=== PATIENT | female | born 1965 | race Caucasian/White ===

== ENCOUNTER 2019-07-19 12:05 | Observation (INO) ==
[2019-07-19] MEDS ORDERED: NITROGLYCERIN 2% OINTMENT 30GM TUBE EXT STA (12:56)
[2019-07-19] MEDS ORDERED: ONDANSETRON INJ 2 MG/ML 2 ML VIAL IV STA (12:56)
[2019-07-19] MEDS ORDERED: SODIUM CHLORIDE 0.9% 500 ML IV SCH (13:00)
[2019-07-19 13:13] LABS: Hematocrit (blood only) 40.4 % (37-47); Hemoglobin 14.1 g/dL (12.0-16.0); Mean Corpuscular Hemoglobin 34.2 pg (25-34); Mean Corpuscular Hgb Conc 34.9 g/dL (32-36); Mean Corpuscular Volume 98.1 fL (80-100); RDW Coefficient of Variation 13.2 % (11.5-14.5); RDW Standard Deviation 46.9 fL (36.4-46.3); Red Blood Count 4.12 M/uL (4.2-5.4); White Blood Count 5.03 K/uL (4.8-10.8)
--- NOTE | 2019-07-19 13:21 | XRay Report ---
XR chest 1V portable CLINICAL HISTORY: Chest Pain dysphagia. Dyspnea. COMPARISON STUDY: No previous studies for comparison. FINDINGS: The bones soft tissues and hemidiaphragms are normal. The cardiomediastinal silhouette is n ormal. The lungs are clear. The pulmonary vasculature is normal. IMPRESSION: Negative chest. ACT 112: Negative or not required by law. The above report was generated using voice recognition software. It may contain grammatical, syntax or spelling errors. Electronically signed by: Quinn Byrd M.D. 07/19/2019 1:20 PM
[2019-07-19 13:22] LABS: INR 1.1 (0.9-1.1); Partial Thromboplastin Time 28.5 Seconds (21.0-31.0); Prothrombin Time 11.4 Seconds (9.0-12.0)
[2019-07-19 13:23] LABS: Albumin Level 4.2 gm/dl (3.4-5.0); Aspartate Aminotransferase 100 U/L (15-37); BUN Creatinine Ratio 12.9 (10-20); Blood Urea Nitrogen 8 mg/dl (7-18); Calcium 9.9 mg/dl (8.5-10.1); Carbon Dioxide 24 mmol/L (21-32); Chloride 103 mmol/L (98-107); Creatinine Clr Calc Pharmacy 101.5 ml/min; Est GFR (Non-African American) 103.5; Glucose 143 mg/dl (70-99); Lipase 124 U/L (73-393); Magnesium 1.5 mg/dl (1.8-2.4); Potassium 3.4 mmol/L (3.5-5.1); Sodium 135 mmol/L (136-145)
[2019-07-19 13:27] LABS: Alanine Aminotransferase 48 U/L (12-78); Albumin Globulin Ratio 0.8 (0.9-2); Alkaline Phosphatase 205 U/L (45-117); Bilirubin,Total 1.1 mg/dl (0.2-1); Globulin 5.2 gm/dl (2.5-4.0); Total Protein 9.4 gm/dl (6.4-8.2); Troponin I < 0.015 ng/ml (0-0.045)
[2019-07-19 13:31] LABS: Basophils # (auto) 0.01 K/uL (0-0.2); Basophils % (auto) 0.2 %; Eosinophils # (auto) 0.01 K/uL (0-0.5); Eosinophils % (auto) 0.2 %; Lymphocytes # (auto) 1.79 K/uL (1.2-3.4); Lymphocytes % (auto) 35.6 %; Mean Platelet Volume 10.7 fL (7.4-10.4); Monocytes # (auto) 0.53 K/uL (0.11-0.59); Monocytes % (auto) 10.5 %; Neutrophils # (auto) 2.69 K/uL (1.4-6.5); Neutrophils % (auto) 53.5 %; Platelet Count 84 K/uL (130-400); Platelet Estimate Decreased (Normal)
[2019-07-19] MEDS ORDERED: MAGNESIUM SULFATE / D5W 1 GM/100 ML BAG IV ONE (13:37)
[2019-07-19] MEDS ORDERED: MAGNESIUM OXIDE 400 MG TAB PO STA (13:37)
[2019-07-19] MEDS ORDERED: OPTIRAY 320 125ml IV PRN (13:46)
--- NOTE | 2019-07-19 14:01 | CT Scan Report ---
CT angio chest PE protocol CLINICAL HISTORY: 53 years-old Female presenting with atypical chest pain, clinical concern for pulmo nary embolus. TECHNIQUE: Multidetector CT angiography of the chest was performed after administration of intravenou s contrast. 3-D volumetric and/or maximum intensity projection (MIP) images were subsequently reconst ructed for review. IV contrast: 119 mL of Optiray 320. One or more dose lowering techniques were used consistent with the principles of ALARA (as low as reasonably achievable), including automatic expos ure control, mA or kV adjustment to individual patient size, and/or use of iterative reconstruction. COMPARISON: None. CT DOSE (mGy.cm): The estimated cumulative dose is 387.62 mGy.cm. 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 Pulmonary vasculature: The study is suboptimal for the assessment of the pulmonary vascular tree secondary to timing of the contrast bolus. No filling defect within the pulmonary arteries to suggest embolus. Main pulmonary ar louie is not enlarged. No flattening of the interventricular septum. No intracardiac filling defect. N o reflux of contrast into the hepatic veins. Remaining chest: Soft tissues: Asymmetric skin thickening and infiltration of the left breast may suggest prior radiat ion. No axillary, supraclavicular, mediastinal, or hilar lymphadenopathy. Trace atherosclerosis of th e aorta. Normal heart size. Coronary artery calcification. No pericardial or pleural effusion. Hepati c steatosis. Lungs and airways: No pneumothorax. Central airways patent. Pulmonary arteries are not significantly enlarged relative to adjacent bronchi. No interlobular septal thickening. No focal infiltrate or nodu le. Musculoskeletal: Normal osseous structures. IMPRESSION: 1. No evidence of pulmonary embolus. No acute intrathoracic pathology. ACT 112: Negative or not required by law. Electronically signed by: Freedom Lewis M.D. 07/19/2019 1:59 PM
--- NOTE | 2019-07-19 14:26 | History & Physical Report ---
Date of Service July 19, 2019 Assessment & Plan (1) Chest pain: - Admit to [facility] for observation for r/o - Trend cardiac biomarkers, initial set was negative, next at 1999 - EKG reviewed as above - Check 2 D echo - CTPE negative, checked for possible PE with recent surgical procedure. - If negative enzymes can consider a stress test tomorrow morning. 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 Discussion may be warranted (2) Obesity (BMI 30.0-34.9): - Diet and exercise to be encouraged upon discharge. - diet (3) Hyperlipidemia: - Follow am lipid panel (4) Hypertension: - Continue amlodipine 5 mg daily - BP stable currently, 131/80, nitropaste on - Likely elevated in the setting of anxiety over past few days, continue to monitor. (5) Abdominal distension: - Pt reporting worsening abd distension since having surgery Jun 29, denies use of narcotic medications or slowed bowels (on PDMP review had filled oxycodone-acetaminophen 5-325 mg Rx for 18 tabs on 06/28/19 for surgical procedure), has regular BMs, tolerating oral intake ok but reports poor appetite, no nausea/vomiting. - Check KUB now to r/o ?partial obstruction? retained fecal load? Hx of c- section ? possible adhesions (6) Hypomagnesemia: - Mag 1.5 upon arrival, replaced via IV supplementation in the ER, follow with am labs (7) Elevated alkaline phosphatase level: - 205 on admission, follow with am labs to ensure improvement - Pt uses alcohol 2-3x weekly, 1-2 drinks at a time. Discuss alcohol use and limiting consumption prior to discharge. (8) DVT prophylaxis: - teds, ambulatory CODE: FULL Dispo: From home, likely to discharge within 24 hrs. History of Present Illness Primary Care Provider: Bella Hood This is a 53 yo F with PMhx of HTN, HLD, obesity with BMI of 30.4 who presents with acute onset of chest tightness, palpitations, and near syncopal episode which occurred this morning. Of note the patient had bilateral breast implant removal by Dr. Davalos on June 29, 2019. She reports her blood pressure has been elevated on and off over the last few days. She denies chest pain, and reports there is only a slight soreness s/p surgical procedure. Her biggest complaint was heart racing which went on nearly all morning. She reports her sx worsened late this morning and noticed she was a bit lightheaded on two occasions while she was up walking about. She did not eat breakfast this morning, and states she only drank a gingerale so far today. She reports a poor appetite since surgery, and feels distended, although is having regular BM and denies any abd pain. She denies use of narcotic medications recently. [facility]. During EMS transport patient was given aspirin and nitroglycerin tablet which improved her pain, once here the ER felt recurrence of chest pressure and Nitropaste was placed which aided improvement in her symptoms. She is now complaining of a slight headache, and is requesting something to eat. Today was the first day back to work since having her breast implant removal. 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, and thought they would be gawking at me", while appearing very anxious, "and there are also a lot of hateful people there." Allergies Allergy/AdvReac Type Severity Reaction Status Date / Time No Known Allergies Allergy Verified 07/19/19 12:50 Home Medications Home Medications Medication Instructions Recorded Confirmed Type acetaminophen [Tylenol Extra 1,000 mg PO Q6H PRN 12/02/18 07/19/19 History Strength] amlodipine 5 mg PO QAM 12/02/18 07/19/19 History cholecalciferol (vitamin D3) 1,000 unit PO QAM 12/02/18 07/19/19 History [Vitamin D3] Past Med/Surg History Medical History Hyperlipidemia HX Hypertension Kidney stones PASSED ON OWN Tinnitus of both ears Surgical History History of bilateral breast implants History of carpal tunnel release BILAT History of carpal tunnel release of both wrists History of section History of dilatation and curettage History of tonsillectomy History of wisdom tooth extraction Social History Preferred Language: Malian Communication Ability: Effective Erp Implementation Consultant Required: No Beliefs That Will Affect Care: None Current Living Situation: Family Current Living Situation Comment: Lives with father Other Information That Helps Us Care for You: No Feels Safe at Home: Yes Safety Concerns: Feels Safe At This Time Smoking Status: Never smoker Second Hand Exposure: No ; Hx Alcohol Use: Yes Alcohol type: beer, wine and hard liquor Hx Substance Use: No Review of Systems Review of Systems: Constitutional: No fever, sweats or chills, + lightheadedness x 2 as per HPI. Eyes: No diplopia, no worsening or blurred vision ENT: normal hearing, no trouble swallowing Respiratory: No cough, sputum, dyspnea at rest or on exertion Cardiovascular: No chest pain, tightness, + palpitations Abdomen: No pain, nausea, vomiting, diarrhea or constipation Musculoskeletal: No joint pain, calf pain, swelling Neurologic: No weakness, numbness/tingling, or balance problems Psychiatric: No anxiety or depression Skin: No rash or itch Physical Exam Physical Exam: General: awake, alert, no apparent distress, + anxious, + obese Head: Normocephalic, atraumatic ENT: PERRL, EOMI, no pharyngeal exudate, mucous membranes moist Chest: Clear to auscultation, on room air, no adventitious breath sounds, + incisions under breast folds bilaterally appear very well healed, no surrounding erythema, no drainage Cardiac: Regular rate and rhythm, no murmur, no JVD, normal peripheral pulses, good capillary refill Abdominal: NABS x 4 quadrants, abdominal obesity, soft, + slightly distended, nontender to palpation, no rebound, guarding or tenderness Extremities: Normal inspection, no peripheral edema or erythema, calfs nontender to palpation Psych: Normal mood and affect Neuro: AAO x 3, strength intact bilaterally and rated 5/5, no motor deficits, speech is clear, no peripheral sensory deficits Results & Data Vital Signs (Past 12 Hours) Vital Signs Temp Pulse Resp BP Pulse Ox 07/19/19 13:14 98 07/19/19 13:00 69 19 148/85 H 97 07/19/19 12:30 66 20 146/80 H 98 07/19/19 12:20 36.4 C L 69 18 134/81 97 07/19/19 12:13 69 20 99 07/19/19 12:11 68 17 134/81 98 Diagnostic Findings XR chest 1V portable CLINICAL HISTORY: Chest Pain dysphagia. Dyspnea. COMPARISON STUDY: No previous studies for comparison. FINDINGS: The bones soft tissues and hemidiaphragms are normal. The cardiomediastinal silhouette is normal. The lungs are clear. The pulmonary vasculature is normal. IMPRESSION: Negative chest. ACT 112: Negative or not required by law. The above report was generated using voice recognition software. It may contain grammatical, syntax or spelling errors. Electronically signed by: Quinn Byrd M.D. 07/19/2019 1:[address] angio chest PE protocol CLINICAL HISTORY: 53 years-old Female presenting with atypical chest pain, clin ical concern for pulmonary embolus. TECHNIQUE: Multidetector CT angiography of the chest was performed after administration of intravenous contrast. 3-D volumetric and/or maximum intensity projection (MIP) images were subsequently reconstructed for review. IV contrast: 119 mL of Optiray 320. One or more dose lowering techniques were used consistent with the principles of ALARA (as low as reasonably achievable), including automatic exposure control, mA or kV adjustment to individual patient size, and/or use of iterative reconstruction. COMPARISON: None. CT DOSE (mGy.cm): The estimated cumulative dose is 387.62 mGy.cm. 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 Pulmonary vasculature: The study is suboptimal for the assessment of the pulmonary vascular tree secondary to timing of the contrast bolus. No filling defect within the pulmonary arteries to suggest embolus. Main pulmonary artery is not enlarged. No flattening of the interventricular septum. No intracardiac filling defect. No reflux of contrast into the hepatic veins. Remaining chest: Soft tissues: Asymmetric skin thickening and infiltration of the left breast may suggest prior radiation. No axillary, supraclavicular, mediastinal, or hilar lymphadenopathy. Trace atherosclerosis of the aorta. Normal heart size. Coronary artery calcification. No pericardial or pleural effusion. Hepatic steatosis. Lungs and airways: No pneumothorax. Central airways patent. Pulmonary arteries are not significantly enlarged relative to adjacent bronchi. No interlobular septal thickening. No focal infiltrate or nodule. Musculoskeletal: Normal osseous structures. IMPRESSION: 1. No evidence of pulmonary embolus. No acute intrathoracic pathology. ACT 112: Negative or not required by law. ECG Additional Comments: 19-JUL-2019 12:14:08 [facility]-EDSTAT ROUTINE RETRIEVAL Normal sinus rhythm Cannot rule out Anterior infarct , age undetermined Abnormal ECG When compared with ECG of 18-JUN-2019 12:29, No significant change was found 25mm/s 10mm/mV 150Hz 9.0.9 12SL 241 DORY: 16 Unconfirmed Vent. rate 68 BPM WA interval 132 ms QRS duration 84 ms QT/QTc 422/448 ms P-R-T axes 63 24 30 Code Status & VTE Plan Code Status Full code- discussed with the pt at bedside Supervising Physician Co-Signing Physician Notes I have seen and examined pt with Betty Beckford PA-C and I agree with assessment and plan. My Exam: General: awake, alert, no apparent distress, + anxious, + obese Head: Normocephalic, atraumatic ENT: PERRL, EOMI, no pharyngeal exudate, mucous membranes moist Chest:CTAB, + incisions under breasts C/D/I Cardiac:RRR, no G/R/M Abdominal: soft, NT, mildly distended, obese Extremities: Normal inspection, no peripheral edema or erythema, calfs nontender to palpation Psych: Normal mood and affect Neuro: AAO x 3, strength intact bilaterally and rated 5/5, no motor deficits, speech is clear, no peripheral sensory deficits PG Care Time/CCT Total # of Minutes Spent Total Time Spent with Patient: Total time spent is greater than 50% in coordination of care (as documented) at patient's floor/unit and/or counseling patient: Coding Level of Care Code 37571 OBS Care - Level 3 Diagnoses Chest pain R07.9 Obesity (BMI 30.0-34.9) E66.9 Hyperlipidemia E78.5 Hypertension I10 Abdominal distension R14.0 Hypomagnesemia E83.42 Elevated alkaline phosphatase level R74.8 DVT prophylaxis Z29.9
--- NOTE | 2019-07-19 17:04 | XRay Report ---
KUB HISTORY: Acute generalized abdominal pain with distention abd distension, r/o obstruction COMPARISON: CT abdomen 07/07/2008 FINDINGS: The bowel gas pattern is non-obstructive. Moderate fecal retention. There is no organomegal y., [place] calcifications are suggestive of probable phleboliths. No renal calculi. No ureteral calcul i. No pneumoperitoneum or pneumatosis. Mild convex right curvature of the lumbar spine with multileve l degenerative changes. No fracture. IMPRESSION: 1. Nonobstructive bowel gas pattern. 2. Moderate fecal retention. ACT 112: Negative or not required by law. The above report was generated using voice recognition software. It may contain grammatical, syntax o r spelling errors. Electronically signed by: Anthony Tapia M.D. 07/19/2019 5:03 PM
--- NOTE | 2019-07-19 17:11 | XCELERA ---
[id number] \\[email or web address]\[id number]
--- NOTE | 2019-07-19 18:39 | Emergency Department Note ---
Entered by Iker Serna acting as a scribe for History of Present Illness General Chief complaint: Chest Pain Stated complaint: chest pain Time Seen by Provider: 07/19/19 12:47 Source: patient History of Present Illness Onset (ago): hour(s) (earlier today) Location: chest Radiation: back Pain Consistency: + other (worsening) Maximum Pain Intensity: 4 Current Pain Intensity: 5 Associated symptoms: + diaphoresis, + nausea/vomiting (nausea), + weakness and + other (dyspnea, abdominal bloating) The patient is a 53 year old F who presents to the Emergency Room with complaints of worsening chest pain that started earlier today. The patient states that 4 days ago, she started to experience problems with her blood pressure. She notes that she has a history of HTN. She adds that on Friday, her blood pressure was low. She states that due to this, she did not take her amlodipine medication. She notes that the next day, she also had low blood pressure. She states yesterday, her blood pressure increased. She notes that she felt bad yesterday and was not able to fall asleep. She adds that she took her amlodipine medication yesterday. She states that today, she woke up and went to work. She notes that at work, within 30 minutes, she started to experience chest pain. She adds that she almost experienced syncope, twice, at work. She notes that she decided to leave work early and drive to the [facility]. She adds that on her drive, she was experiencing shakiness. She notes that when she arrived at the [facility], she almost passed out again. She states that her blood pressure was 189/99 at the [facility]. She states that her chest pain worsened throughout the day. She adds that her chest pain radiates to her back. She currently rates her pain as 5 out of 10. She adds that the nitro and aspirin that she received in the ambulance temporarily relieved her symptoms. She notes that she is also currently experiencing nausea, sweating, dyspnea, weakness, and abdominal bloating. She denies a history of blood clots, diabetes, and smoking. She notes that she has borderline cholesterol issues. She adds that 2 years ago, she fell off of a stairwell and landed on her chest. She notes that she got very sick after her episode of trauma. She adds that she lost 40 pounds after the event. She states that she does not know if she has a family history of cardiac issues because she is adopted. A review of the patients records show that the patient had bilateral breast implants removed on 06/[address] Davalos. The records add that the patient was sent over by the [facility] for chest pain. The records note that the patient received nitroglycerin and aspirin in the ambulance. Home Medications Home Medications Medication Instructions Recorded Confirmed Type acetaminophen [Tylenol Extra 1,000 mg PO Q6H PRN 12/02/18 07/19/19 History Strength] amlodipine 5 mg PO QAM 12/02/18 07/19/19 History cholecalciferol (vitamin D3) 1,000 unit PO QAM 12/02/18 07/19/19 History [Vitamin D3] Allergies Allergy/AdvReac Type Severity Reaction Status Date / Time No Known Allergies Allergy Verified 07/19/19 12:50 Past Med/Surg History Medical History Hyperlipidemia HX Hypertension Kidney stones PASSED ON OWN Tinnitus of both ears Surgical History History of bilateral breast implants History of carpal tunnel release BILAT History of carpal tunnel release of both wrists History of section History of dilatation and curettage History of tonsillectomy History of wisdom tooth extraction Social History Preferred Language: Chinese Communication Ability: Effective Chief Of Anesthesiology Required: No Beliefs That Will Affect Care: None Current Living Situation: Family Current Living Situation Comment: Lives with father Other Information That Helps Us Care for You: No Feels Safe at Home: Yes Safety Concerns: Feels Safe At This Time Smoking Status: Never smoker Second Hand Exposure: No ; Hx Alcohol Use: Yes Alcohol type: beer, wine and hard liquor Hx Substance Use: No Review of Systems See HPI for pertinent positives & negatives. and A total of 10 systems reviewed and were otherwise negative Physical Exam Vital Signs Vital Signs - 24 hr 07/19/19 12:11 07/19/19 12:13 07/19/19 12:20 Temperature 36.4 C L Temperature Source Oral Pulse Rate 68 69 69 Pulse Rate [Left Finger] Pulse Rate from SpO2 Sensor 67 66 Respiratory Rate 17 20 18 Respiratory Depth Normal Blood Pressure 134/81 134/81 Blood Pressure [Left Arm] Blood Pressure Mean 94 98 Blood Pressure Mean [Left Arm] Pulse Oximetry 98 99 97 Oxygen Delivery Method Room Air Sepsis Recent Fever Within 48 Hours No Sepsis New/Unexplained Change in Mental Status No Sepsis Action Taken by Nursing No Action Required 07/19/19 12:30 07/19/19 13:00 07/19/19 13:14 Temperature Temperature Source Pulse Rate 66 69 Pulse Rate [Left Finger] Pulse Rate from SpO2 Sensor 68 71 Respiratory Rate 20 19 Respiratory Depth Blood Pressure 146/80 H 148/85 H Blood Pressure [Left Arm] Blood Pressure Mean 103 114 Blood Pressure Mean [Left Arm] Pulse Oximetry 98 97 98 Oxygen Delivery Method Sepsis Recent Fever Within 48 Hours Sepsis New/Unexplained Change in Mental Status Sepsis Action Taken by Nursing 07/19/19 14:31 Temperature Temperature Source Pulse Rate Pulse Rate [Left Finger] 78 Pulse Rate from SpO2 Sensor Respiratory Rate 18 Respiratory Depth Blood Pressure Blood Pressure [Left Arm] 131/80 Blood Pressure Mean Blood Pressure Mean [Left Arm] 97 Pulse Oximetry 96 Oxygen Delivery Method Room Air Sepsis Recent Fever Within 48 Hours Sepsis New/Unexplained Change in Mental Status Sepsis Action Taken by Nursing GENERAL: Patient is in no acute distress. HEENT: No acute trauma, normocephalic atraumatic, mucous membranes moist, no nasal congestion, no scleral icterus. NECK: No stridor, no adenopathy, no meningismus, trachea is midline. LUNGS: Clear to auscultation bilaterally, no wheeze, no rhonchi, breath sounds equal. HEART: Without murmurs gallops or rubs, regular rate and rhythm. CHEST: Some tenderness to the anterior chest wall, surgical incisions healing without signs of erythema, no significant drainage. ABDOMEN: Soft, nontender, bowel sounds positive, no hernias, no peritonitis. EXTREMITIES: No cyanosis or edema, full range of motion of all the joints without pain or difficulty, no signs for acute trauma. NEUROLOGIC: Oriented x 3, no acute motor or sensory deficits, no focal weakness. SKIN: No rash, no jaundice, no diaphoresis. Course Course 1249: The patient was evaluated in room B12. A complete history and physical exam was performed. 1411: The patient states that she is feeling better after the nitro paste. I talked with the case management specialist who will see where the patient will go because the patient has [employer] insurance. 1425: I reviewed the patient's case with Betty Beckford PA-C for Dr. Chapin, [facility] Hospitalist. They will evaluate the patient for further management. Administered Medications Discontinued Medications Sodium Chloride (Nss) 500 mls @ 999 mls/hr IV .Q31M JOCELIN Stop: 07/19/19 13:30 Last Infusion: 07/19/19 13:40 Dose: 0 mls/hr Documented by: [id number] Admin: 07/19/19 13:10 Dose: 999 mls/hr Documented by: [id number] Magnesium Sulfate/Dextrose (Magnesium Sulfate / D5w) 1 gm in 100 mls @ 100 mls/hr IV ONE ONE Stop: 07/19/19 14:36 Last Infusion: 07/19/19 15:36 Dose: 0 mls/hr Documented by: [id number] Admin: 07/19/19 14:29 Dose: 100 mls/hr Documented by: [id number] Ioversol (Optiray 320 125ml) 119 ml IV ONCE PRN PRN Reason: Interaction Checking Stop: 07/23/19 13:45 Last Admin: 07/19/19 13:46 Dose: 119 ml Documented by: [id number] Magnesium Oxide (Mag-Ox) 400 mg PO NOW STA Stop: 07/19/19 13:38 Last Admin: 07/19/19 14:29 Dose: 400 mg Documented by: [id number] Nitroglycerin (Nitro-Bid 2%) 1 inch EXT NOW STA Stop: 07/19/19 12:57 Last Admin: 07/19/19 13:10 Dose: 1 inch Documented by: [id number] Ondansetron HCl (Zofran) 4 mg IV NOW STA Stop: 07/19/19 12:57 Last Admin: 07/19/19 13:10 Dose: 4 mg Documented by: [id number] Medical Decision Making Differential Diagnosis Differential diagnosis includes: OH, angina, PE, PNA, pneumothorax, cellulitis, musculoskeletal pain Medical Records Attestation: I reviewed the patient's medical records. Home Medications Current Medication List: was personally reviewed by me Laboratory Data Attestation: I reviewed the patient's lab results. Result diagrams: 07/19/19 12:00 07/19/19 12:00 Lab Results 07/19/19 07/19/19 07/19/19 Range/Units 12:00 12:00 12:00 WBC 5.03 (4.8-10.8) K/uL RBC 4.12 L (4.2-5.4) M/uL Hgb 14.1 (12.0-16.0) g/dL Hct 40.4 (37-47) % MCV 98.1 (80-100) fL MCH 34.2 H (25-34) pg MCHC 34.9 (32-36) g/dL RDW Std Deviation 46.9 H (36.4-46.3) fL RDW Coeff of Maninder 13.2 (11.5-14.5) % Plt Count 84 L (130-400) K/uL MPV 10.7 H (7.4-10.4) fL Immature Gran % (Auto) 0.0 % Neut % (Auto) 53.5 % Lymph % (Auto) 35.6 % [place] % (Auto) 10.5 % Eos % (Auto) 0.2 % Baso % (Auto) 0.2 % Immature Gran # (Auto) 0.00 (0.00-0.02) K/uL Neut # (Auto) 2.69 (1.4-6.5) K/uL Lymph # (Auto) 1.79 (1.2-3.4) K/uL [place] # (Auto) 0.53 (0.11-0.59) K/uL Eos # (Auto) 0.01 (0-0.5) K/uL Baso # (Auto) 0.01 (0-0.2) K/uL Platelet Estimate Decreased L (Normal) PT 11.4 (9.0-12.0) Seconds INR 1.1 (0.9-1.1) APTT 28.5 (21.0-31.0) Seconds PTT Ratio 1.0 Sodium 135 L (136-145) mmol/L Potassium 3.4 L (3.5-5.1) mmol/L Chloride 103 (98-107) mmol/L Carbon Dioxide 24 (21-32) mmol/L Anion Gap 9.0 (3-11) BUN 8 (7-18) mg/dl Creatinine 0.61 (0.6-1.2) mg/dl Est Cr Clr Drug Dosing 101.5 ml/min Est GFR ( Amer) 120.0 Est GFR (Non-Af Amer) 103.5 BUN/Creatinine Ratio 12.9 (10-20) Glucose 143 H (70-99) mg/dl Calcium 9.9 (8.5-10.1) mg/dl Magnesium 1.5 L (1.8-2.4) mg/dl Total Bilirubin 1.1 H (0.2-1) mg/dl AST 100 H (15-37) U/L ALT 48 (12-78) U/L Alkaline Phosphatase 205 H (45-117) U/L Troponin I < 0.015 (0-0.045) ng/ml Total Protein 9.4 H (6.4-8.2) gm/dl Albumin 4.2 (3.4-5.0) gm/dl Globulin 5.2 H (2.5-4.0) gm/dl Albumin/Globulin Ratio 0.8 L (0.9-2) Lipase 124 (73-393) U/L Imaging Data Radiologist's Impression: Radiology results as stated below per my review and the radiologist's interpretation: CT angio chest PE protocol CLINICAL HISTORY: 53 years-old Female presenting with atypical chest pain, clinical concern for pulmonary embolus. TECHNIQUE: Multidetector CT angiography of the chest was performed after administration of intravenous contrast. 3-D volumetric and/or maximum intensity projection (MIP) images were subsequently reconstructed for review. IV contrast: 119 mL of Optiray 320. One or more dose lowering techniques were used consistent with the principles of ALARA (as low as reasonably achievable), including automatic exposure control, mA or kV adjustment to individual patient size, and/or use of iterative reconstruction. COMPARISON: None. CT DOSE (mGy.cm): The estimated cumulative dose is 387.62 mGy.cm. FINDINGS: Sound Engineer topogram: Unremarkable. Pulmonary vasculature: The study is suboptimal for the assessment of the pulmonary vascular tree secondary to timing of the contrast bolus. No filling defect within the pulmonary arteries to suggest embolus. Main pulmonary artery is not enlarged. No flattening of the interventricular septum. No intracardiac filling defect. No reflux of contrast into the hepatic veins. Remaining chest: Soft tissues: Asymmetric skin thickening and infiltration of the left breast may suggest prior radiation. No axillary, supraclavicular, mediastinal, or hilar lymphadenopathy. Trace atherosclerosis of the aorta. Normal heart size. Coronary artery calcification. No pericardial or pleural effusion. Hepatic steatosis. Lungs and airways: No pneumothorax. Central airways patent. Pulmonary arteries are not significantly enlarged relative to adjacent bronchi. No interlobular septal thickening. No focal infiltrate or nodule. Musculoskeletal: Normal osseous structures. IMPRESSION: 1. No evidence of pulmonary embolus. No acute intrathoracic pathology. ACT 112: Negative or not required by law. Electronically signed by: Freedom Lewis M.D. 07/19/2019 1:59 PM XR chest 1V portable CLINICAL HISTORY: Chest Pain dysphagia. Dyspnea. COMPARISON STUDY: No previous studies for comparison. FINDINGS: The bones soft tissues and hemidiaphragms are normal. The cardiomediastinal silhouette is normal. The lungs are clear. The pulmonary vasculature is normal. IMPRESSION: Negative chest. ACT 112: Negative or not required by law. The above report was generated using voice recognition software. It may contain grammatical, syntax or spelling errors. Electronically signed by: Quinn Byrd M.D. 07/19/2019 1:20 PM ECG Data Attestation: I personally reviewed and interpreted this ECG as follows: Indication: + chest pain Rate (beats per minute): 68 Rhythm: + normal sinus ECG ST segments: no ST elevation ECG Findings: + Other (QTc 448); no PVCs Blood Pressure Blood Pressure Findings: Elevated blood pressure Blood Pressure Disposition: further management by hospitalist [facility] Narrative There is no leukocytosis or concerning anemia. The patient does have a lower platelet count although the number is not critical. There was no coagulopathy. No kidney failure. Magnesium somewhat low at 1.5. There were a few liver enzyme elevations. No evidence for pancreatitis. Chest film does not show pneumonia or CHF. Chest CT does not show PE, there was no pneumonia or evidence for aortic dissection. The patient presents with chest discomfort which caused some shortness of breath, near syncope, sweating and nausea. She does have some cardiac risk factors. The patient did feel better after the sublingual nitro given by EMS. The patient was given nitroglycerin paste, she received IV saline. She was given IV Zofran. She received IV magnesium. The patient presents with chest discomfort which sounds potentially cardiac in origin. She does have some cardiac risk factors. Patient did feel improved after the use of nitroglycerin paste. Further work-up in the hospital was felt warranted. I spoke to the patient and case management. The on-call hospitalist has been consulted. At this point, the cause for her chest discomfort is not clear. Continuous Cardiac Monitoring: An order was placed for continuous cardiac monitoring. The monitor shows a rate of 78 with normal sinus rhythm. Impression & Plan Precordial chest pain, Diaphoresis, History of breast surgery Discharge Plan Visit Data *Final* Discharge Date/Time: 07/19/19 16:30 Chief Complaint: Chest Pain Stated Complaint: chest pain ED Provider: Carlos Farah Discharge Problem: Precordial chest pain, Diaphoresis, History of breast surgery Patient Disposition: Admitted As Inpatient Discharge Instructions Interventions: ED Discharge Assessment Last Done: 07/19/19 16:30 The anabelibe's documentation has been prepared under my direction and personally reviewed by me in its entirety. I confirm that the note above accurately reflects all work, treatment, procedures, and medical decision making performed by me.
[2019-07-19] MEDS: ACETAMINOPHEN 500 MG TAB PO PRN (20:24)
[2019-07-20 03:47] LABS: Hematocrit (blood only) 39.8 % (37-47); Hemoglobin 13.5 g/dL (12.0-16.0); Mean Corpuscular Hemoglobin 33.4 pg (25-34); Mean Corpuscular Hgb Conc 33.9 g/dL (32-36); Mean Corpuscular Volume 98.5 fL (80-100); RDW Coefficient of Variation 13.2 % (11.5-14.5); RDW Standard Deviation 47.6 fL (36.4-46.3); Red Blood Count 4.04 M/uL (4.2-5.4); White Blood Count 5.24 K/uL (4.8-10.8)
[2019-07-20 03:49] LABS: Mean Platelet Volume 10.7 fL (7.4-10.4); Platelet Count 67 K/uL (130-400)
[2019-07-20 04:10] LABS: Albumin Level 3.7 gm/dl (3.4-5.0); BUN Creatinine Ratio 10.5 (10-20); Calcium 9.8 mg/dl (8.5-10.1); Creatinine Clr Calc Pharmacy 92.4 ml/min; Est GFR (African American) 116.3; Est GFR (Non-African American) 100.4; Magnesium 1.9 mg/dl (1.8-2.4); Potassium 3.7 mmol/L (3.5-5.1)
[2019-07-20 04:14] LABS: Albumin Globulin Ratio 0.8 (0.9-2); Bilirubin Direct 0.4 mg/dl (0-0.2); Bilirubin,Total 1.6 mg/dl (0.2-1); Globulin 4.6 gm/dl (2.5-4.0); Total Protein 8.3 gm/dl (6.4-8.2)
[2019-07-20 06:00] LABS: Estimated Average Glucose 103 mg/dl; Hemoglobin A1C 5.2 % (4.5-5.6)
--- NOTE | 2019-07-20 06:31 | Ultrasound Report ---
US liver CLINICAL HISTORY: elevated transaminase, abd pain COMPARISON STUDY: No previous studies for comparison. FINDINGS: The pancreas appears normal as visualized. There is no ductal dilatation. There is an echogenic nonsh adowing nonmobile 3 mm focus within the gallbladder, likely representing a polyp. The liver is of inc reased echogenicity, a nonspecific finding most often seen in hepatic steatosis. Hepatitis of infiltr ative processes can appear similar. There is a suspected 17 mm hepatic cyst which is minimally comple x containing a tiny echogenic focus. There is no right-sided hydronephrosis. IMPRESSION: 1. 3 mm gallbladder polyp. No ductal dilatation 2. Increased hepatic echogenicity. This is a nonspecific finding most often seen in hepatic steatosis . ACT 112: Negative or not required by law. Electronically signed by: Mitchell Sheikh M.D. 07/20/2019 6:29 AM
[2019-07-20] MEDS: CHOLECALCIFEROL 1,000 UNITS 25 MCG TAB PO SCH (07:31)
[2019-07-20] MEDS: AMLODIPINE BESYLATE 5 MG TAB PO SCH (07:31)
--- NOTE | 2019-07-20 11:44 | Electrocardiogram Report ---
Test Reason : Blood Pressure : / mmHG Vent. Rate : 068 BPM Atrial Rate : 068 BPM P-R Int : 132 ms QRS Dur : 084 ms QT Int : 422 ms P-R-T Axes : 063 024 030 degrees QTc Int : 448 ms Normal sinus rhythm Normal ECG When compared with ECG of 18-JUN-2019 12:29, No significant change was found Confirmed by Piter Sheth ([id number]) on 07/20/2019 11:44:22 AM Referred By: Confirmed By:Piter Sheth
[2019-07-20] MEDS: ACETAMINOPHEN 500 MG TAB PO PRN (13:18)
--- NOTE | 2019-07-20 13:49 | Hospitalist Progress Note ---
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 No significant valvular disease * CT Chest negative for PE * Stress test without abnormality per cardiology * Tbili up to 1.6 from 1.1. Direct bili elevated at 0.4 --> Liver US as below. Consider HIDA scan * Liver US with 3mm gallbladder polyp, nonspecific hepatic steatosis (2nd to etoh hx) * KUB without obstruction, moderate fecal retention * TSH 2.92 wnl * Lipase 124, given hx etoh use * Vistaril 25mg prn -- discussed this vs SSRI -- will utilize prn for now and follow up with PCP as outpatient * Exercise stress without abnormality * Possible anxiety vs GB etiology -- HIDA in AM (2) Obesity (BMI 30.0-34.9): * Diet and exercise to be encouraged upon discharge. A1c 5.2. Cholesterol elevated at 222, LDL 106, HDL 100 * HH diet (3) Hyperlipidemia: * Hx of. Not on any medications. * Lipid panel -- triglycerdies 80, cholesterol 222, LDL 106, HDL 100 * May benefit from low dose statin (4) Hypertension: * Chronic. Elevated slightly at 148/83 in setting of anxiety * Continue home amlodipine 5 mg daily (5) Abdominal distension: * - Pt reporting worsening abd distension since having surgery Jun 29, denies use of narcotic medications or slowed bowels (on PDMP review had filled oxycodone-acetaminophen 5-325 mg Rx for 18 tabs on 06/28/19 for surgical procedure), has regular BMs, tolerating oral intake ok but reported poor appetite, no nausea/vomiting. Patient states she ate well today but does have some fullness * KUB without evidence of obstruction, mod fecal load * Miralax added * Continue to monitor (6) Hypomagnesemia: * Mag 1.5 upon arrival, replaced via IV supplementation in the ER * Mag 1.9 on repeat, wnl (7) Elevated alkaline phosphatase level: * Hx heavy alcohol usage >1 year ago. States she typically consumes 2-3 mixed drinks up to twice weekly on an average basis * No s/sx withdraw currently * Alk christine elevated to 205 on admission, currently trended down to 169 * Follow with AM labs (8) Elevated bilirubin: * Tbili 1.1 on admission. * Tbili up to 1.6 with direct bili 0.4, elevated AST to ALT ration 2:1, could be consistent with EtOH hepatitis * US Liver with 3mm GB polyp, nonspecific hepatic steatosis (possibly 2nd hx etoh use) * Will order HIDA scan to further evaluate for GB pathology (9) DVT prophylaxis: * SCDs, Damon hose * Encourage ambulation Dispo: HIDA in AM, possible discharge Admission and Anticipated Discharge Date Admission Date: July 19, 2019 Supervising Physician Co-Signing Physician Notes PA Supervision Note: I did not personally see or examine the patient today, but I verified all cook points of JEFFREY Laura's assessment and plan with the following exceptions/additions: None Subjective Patient feeling ok today. Denies any further episodes of chest pain outside of yesterday morning and in the emergency room. 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 Patient endorses increased stress and anxiety in regards to job. Denies tobacco usage. Previous increased alcohol following loss of last job over a year ago, but patient states that recently she has only been using 2-3 mixed drinks when out, approximately twice weekly. Some abdominal discomfort, but did have a small BM this morning. She states this was not regular for her, but she does not have regular daily BMs. Of note, patient states she has had some yellow to her stool on occasion. Denies having eaten anything prior to episode of chest pain. Denies previous similar episodes. Denies hx GB disease. Discussed obtaining stress test today and possible discharge this evening vs tomorrow. Denies any nausea/vomiting, fever or chills. No further palpitations. All questions/concerns addressed at this time. Review of Systems Review of Systems: All systems reviewed & are unremarkable except as noted in HPI & below Physical Exam Constitutional: WD/WN, vitals as above no acute distress Eyes: + anicteric sclerae and PERRL Neck: trachea midline, no thyromegaly Respiratory: normal respiratory effort, lungs clear to auscultation Cardiovascular: RRR, no murmur, no edema Gastrointestinal (Abdomen): Inspection/Auscultation: abdomen normal to inspection and normal bowel sounds; abdomen not distended Percussion/Palpation: + abdomen tender (minimal tenderness LLQ, mild tenderness to deep palpation RUQ) and abdomen soft; no guarding Musculoskeletal: no cyanosis or clubbing, extremities motor strength 5/5 Skin: healing surgical scars bilateral breasts, lateral aspect of superior surface, without evidence of erythema/drainage Neurologic: PERRL, EOMI, accommodation nl, no face palsy, no dysarthria Psychiatric: Orientation: alert and oriented x 3 Affect: + anxious affect Lymphatic: no cervical or axillary lymphadenopathy Results & Data ([facility]) Vital Signs (Past 12 Hours) Vital Signs Temp Pulse Resp BP Pulse Ox 07/20/19 10:57 37.1 C 68 18 148/83 H 99 07/20/19 07:00 36.7 C 76 18 131/79 97 07/20/19 04:00 36.8 C 61 18 125/76 96 Laboratory Results 07/20/19 07/20/19 07/20/19 Range/Units 03:36 03:36 03:36 WBC (4.8-10.8) K/uL RBC (4.2-5.4) M/uL Hgb (12.0-16.0) g/dL Hct (37-47) % MCV (80-100) fL MCH (25-34) pg MCHC (32-36) g/dL RDW Std Deviation (36.4-46.3) fL RDW Coeff of Maninder (11.5-14.5) % Plt Count (130-400) K/uL MPV (7.4-10.4) fL Sodium 137 (136-145) mmol/L Potassium 3.7 (3.5-5.1) mmol/L Chloride 102 (98-107) mmol/L Carbon Dioxide 26 (21-32) mmol/L Anion Gap 9.0 (3-11) BUN 7 (7-18) mg/dl Creatinine 0.67 (0.6-1.2) mg/dl Est Cr Clr Drug Dosing 92.4 ml/min Est GFR ( Amer) 116.3 Est GFR (Non-Af Amer) 100.4 BUN/Creatinine Ratio 10.5 (10-20) Glucose 114 H (70-99) mg/dl Estimat Average Glucose 103 mg/dl Hemoglobin A1c 5.2 (4.5-5.6) % Calcium 9.8 (8.5-10.1) mg/dl Magnesium 1.9 (1.8-2.4) mg/dl Total Bilirubin 1.6 H (0.2-1) mg/dl Direct Bilirubin 0.4 H (0-0.2) mg/dl AST 76 H (15-37) U/L ALT 42 (12-78) U/L Alkaline Phosphatase 169 H (45-117) U/L Troponin I (0-0.045) ng/ml Total Protein 8.3 H (6.4-8.2) gm/dl Albumin 3.7 (3.4-5.0) gm/dl Globulin 4.6 H (2.5-4.0) gm/dl Albumin/Globulin Ratio 0.8 L (0.9-2) Triglycerides 80 (0-150) mg/dl Cholesterol 222 H (0-200) mg/dl LDL Cholesterol, Calc 106 mg/dl VLDL Cholesterol, Calc 16 mg/dl HDL Cholesterol 100 mg/dl Cholesterol/HDL Ratio 2 TSH 2.920 (0.300-4.500) uIu/ml 07/20/19 07/20/19 07/19/19 Range/Units 03:36 03:36 19:51 WBC 5.24 (4.8-10.8) K/uL RBC 4.04 L (4.2-5.4) M/uL Hgb 13.5 (12.0-16.0) g/dL Hct 39.8 (37-47) % MCV 98.5 (80-100) fL MCH 33.4 (25-34) pg MCHC 33.9 (32-36) g/dL RDW Std Deviation 47.6 H (36.4-46.3) fL RDW Coeff of Maninder 13.2 (11.5-14.5) % Plt Count 67 L (130-400) K/uL MPV 10.7 H (7.4-10.4) fL Sodium (136-145) mmol/L Potassium (3.5-5.1) mmol/L Chloride (98-107) mmol/L Carbon Dioxide (21-32) mmol/L Anion Gap (3-11) BUN (7-18) mg/dl Creatinine (0.6-1.2) mg/dl Est Cr Clr Drug Dosing ml/min Est GFR ( Amer) Est GFR (Non-Af Amer) BUN/Creatinine Ratio (10-20) Glucose (70-99) mg/dl Estimat Average Glucose mg/dl Hemoglobin A1c (4.5-5.6) % Calcium (8.5-10.1) mg/dl Magnesium (1.8-2.4) mg/dl Total Bilirubin (0.2-1) mg/dl Direct Bilirubin (0-0.2) mg/dl AST (15-37) U/L ALT (12-78) U/L Alkaline Phosphatase (45-117) U/L Troponin I < 0.015 < 0.015 (0-0.045) ng/ml Total Protein (6.4-8.2) gm/dl Albumin (3.4-5.0) gm/dl Globulin (2.5-4.0) gm/dl Albumin/Globulin Ratio (0.9-2) Triglycerides (0-150) mg/dl Cholesterol (0-200) mg/dl LDL Cholesterol, Calc mg/dl VLDL Cholesterol, Calc mg/dl HDL Cholesterol mg/dl Cholesterol/HDL Ratio TSH (0.300-4.500) uIu/ml 07/19/19 Range/Units 16:27 WBC (4.8-10.8) K/uL RBC (4.2-5.4) M/uL Hgb (12.0-16.0) g/dL Hct (37-47) % MCV (80-100) fL MCH (25-34) pg MCHC (32-36) g/dL RDW Std Deviation (36.4-46.3) fL RDW Coeff of Maninder (11.5-14.5) % Plt Count (130-400) K/uL MPV (7.4-10.4) fL Sodium (136-145) mmol/L Potassium (3.5-5.1) mmol/L Chloride (98-107) mmol/L Carbon Dioxide (21-32) mmol/L Anion Gap (3-11) BUN (7-18) mg/dl Creatinine (0.6-1.2) mg/dl Est Cr Clr Drug Dosing ml/min Est GFR ( Amer) Est GFR (Non-Af Amer) BUN/Creatinine Ratio (10-20) Glucose (70-99) mg/dl Estimat Average Glucose mg/dl Hemoglobin A1c (4.5-5.6) % Calcium (8.5-10.1) mg/dl Magnesium (1.8-2.4) mg/dl Total Bilirubin (0.2-1) mg/dl Direct Bilirubin (0-0.2) mg/dl AST (15-37) U/L ALT (12-78) U/L Alkaline Phosphatase (45-117) U/L Troponin I < 0.015 (0-0.045) ng/ml Total Protein (6.4-8.2) gm/dl Albumin (3.4-5.0) gm/dl Globulin (2.5-4.0) gm/dl Albumin/Globulin Ratio (0.9-2) Triglycerides (0-150) mg/dl Cholesterol (0-200) mg/dl LDL Cholesterol, Calc mg/dl VLDL Cholesterol, Calc mg/dl HDL Cholesterol mg/dl Cholesterol/HDL Ratio TSH (0.300-4.500) uIu/ml PG Care Time/CCT Total # of Minutes Spent Total Time Spent with Patient: Total time spent is greater than 50% in coordination of care (as documented) at patient's floor/unit and/or counseling patient: Coding Level of Care Code 83012 Subseq Obs Care Lvl 3 Diagnoses Chest pain R07.9 Obesity (BMI 30.0-34.9) E66.9 Hyperlipidemia E78.5 Hypertension I10 Abdominal distension R14.0 Hypomagnesemia E83.42 Elevated alkaline phosphatase level R74.8 Elevated bilirubin R17 DVT prophylaxis Z29.9
--- NOTE | 2019-07-20 14:17 | XCELERA ---
[id number] \\[id number]
[2019-07-20] MEDS: POLYETHYLENE (MIRALAX) 17 GM PACK PO SCH (17:01)
[2019-07-21 07:24] LABS: Hematocrit (blood only) 43.3 % (37-47); Hemoglobin 14.8 g/dL (12.0-16.0); Mean Corpuscular Hemoglobin 34.5 pg (25-34); Mean Corpuscular Hgb Conc 34.2 g/dL (32-36); Mean Corpuscular Volume 100.9 fL (80-100); RDW Coefficient of Variation 13.1 % (11.5-14.5); Red Blood Count 4.29 M/uL (4.2-5.4); White Blood Count 6.03 K/uL (4.8-10.8)
[2019-07-21 07:26] LABS: Mean Platelet Volume 11.6 fL (7.4-10.4); Platelet Count 75 K/uL (130-400)
[2019-07-21 08:01] LABS: Albumin Level 3.9 gm/dl (3.4-5.0); BUN Creatinine Ratio 18.3 (10-20); Calcium 9.9 mg/dl (8.5-10.1); Creatinine Clr Calc Pharmacy 82.5 ml/min; Est GFR (African American) 110.8; Est GFR (Non-African American) 95.6; Potassium 3.7 mmol/L (3.5-5.1)
[2019-07-21 08:04] LABS: Albumin Globulin Ratio 0.7 (0.9-2); Bilirubin,Total 1.5 mg/dl (0.2-1); Globulin 5.2 gm/dl (2.5-4.0); Total Protein 9.1 gm/dl (6.4-8.2)
[2019-07-21 08:25] LABS: Folate (Folic Acid) 12.78 ng/ml (>5.38)
--- NOTE | 2019-07-21 09:28 | Nuclear Medicine Report ---
NUCLEAR HEPATOBILIARY SCAN CLINICAL HISTORY: Abdominal distention. Elevated hepatic transaminases. COMPARISON STUDY: Abdominal ultrasound dated 07/19/2019. TECHNIQUE: Dynamic images of the liver and anterior abdomen were obtained every 5 minutes for a total of 60 minutes following the IV administration of 5.5mCi of technetium 99m Choletec. FINDINGS: The hepatobiliary scan shows prompt and homogeneous hepatic uptake. There is visualized act ivity within the intra and extrahepatic biliary tree at 10 minutes, and within the gallbladder at 50 minutes. There is normal biliary to bowel transit, with small bowel visualized by 10 minutes. IMPRESSION: Unremarkable nuclear hepatobiliary scan. There is no scintigraphic evidence of cholecyst itis. ACT 112: Negative or not required by law. Electronically signed by: Carlos Murphy M.D. 07/21/2019 9:26 AM
[2019-07-21] MEDS: CHOLECALCIFEROL 1,000 UNITS 25 MCG TAB PO SCH (09:49)
[2019-07-21] MEDS: AMLODIPINE BESYLATE 5 MG TAB PO SCH (09:49)
[2019-07-21] MEDS: POLYETHYLENE (MIRALAX) 17 GM PACK PO SCH (09:50)
--- NOTE | 2019-07-21 10:43 | Discharge Summary ---
Date of Service July 21, 2019 Admission HPI Per Admitting Provider This is a 53 yo F with PMhx of HTN, HLD, obesity with BMI of 30.4 who presents with acute onset of chest tightness, palpitations, and near syncopal episode which occurred this morning. Of note the patient had bilateral breast implant removal by Dr. Davalos on June 29, 2019. She reports her blood pressure has been elevated on and off over the last few days. She denies chest pain, and reports there is only a slight soreness s/p surgical procedure. Her biggest complaint was heart racing which went on nearly all morning. She reports her sx worsened late this morning and noticed she was a bit lightheaded on two occasions while she was up walking about. She did not eat breakfast this morning, and states she only drank a gingerale so far today. She reports a poor appetite since surgery, and feels distended, although is having regular BM and denies any abd pain. She denies use of narcotic medications recently. [facility] her [facility]. During EMS transport patient was given aspirin and nitroglycerin tablet which improved her pain, once here the ER felt recurrence of chest pressure and Nitropaste was placed which aided improvement in her symptoms. She is now complaining of a slight headache, and is requesting something to eat. Today was the first day back to work since having her breast implant removal. 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, and thought they would be gawking at me", while appearing very anxious, "and there are also a lot of hateful people there." Admission Exam Per Admitting Provider General: awake, alert, no apparent distress, + anxious, + obese Head: Normocephalic, atraumatic ENT: PERRL, EOMI, no pharyngeal exudate, mucous membranes moist Chest: Clear to auscultation, on room air, no adventitious breath sounds, + incisions under breast folds bilaterally appear very well healed, no surrounding erythema, no drainage Cardiac: Regular rate and rhythm, no murmur, no JVD, normal peripheral pulses, good capillary refill Abdominal: NABS x 4 quadrants, abdominal obesity, soft, + slightly distended, nontender to palpation, no rebound, guarding or tenderness Extremities: Normal inspection, no peripheral edema or erythema, calfs nontender to palpation Psych: Normal mood and affect Neuro: AAO x 3, strength intact bilaterally and rated 5/5, no motor deficits, speech is clear, no peripheral sensory deficits Principal Diagnosis Atypical Chest Pain, Anxiety Discharge Exam Constitutional WD/WN, vitals as above no acute distress Eyes + anicteric sclerae and PERRL Neck trachea midline, no thyromegaly Respiratory normal respiratory effort, lungs clear to auscultation Cardiovascular RRR, no murmur, no edema Gastrointestinal (Abdomen) Inspection/Auscultation: abdomen normal to inspection and normal bowel sounds; abdomen not distended Percussion/Palpation: abdomen soft; no guarding Musculoskeletal no cyanosis or clubbing, extremities motor strength 5/5 Neurologic PERRL, EOMI, accommodation nl, no face palsy, no dysarthria Psychiatric Orientation: alert and oriented x 3 Affect: + anxious affect Lymphatic no cervical or axillary lymphadenopathy Discharge Data Allergies Allergy/AdvReac Type Severity Reaction Status Date / Time No Known Allergies Allergy Verified 07/19/19 12:50 Consultations 07/19/19 14:29 ED Decision to Admit Stat 07/19/19 14:35 Consult Case Management - Discharge Planning Routine Ordered Studies 07/19/19 12:56 CT angio chest PE protocol Stat 07/19/19 22:28 US liver Urgent KUB 07/19 Stress test ECHO Hospital Course (1) Chest pain: * Resolved -- 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 No significant valvular disease * Exercise stress without abnormality * CT Chest negative for PE * Tbili continued to be elevated * Liver US with 3mm gallbladder polyp, nonspecific hepatic steatosis (2nd to etoh hx) * HIDA scan without evidence of acute GB disease * KUB without obstruction, moderate fecal retention -- resolved with bowel regimen * TSH 2.92 wnl * Lipase 124, given hx etoh use * Vistaril 25mg prn -- discussed this vs SSRI -- discharged on 25mg Q6 prn -- to follow up with PCP outpatient to discuss possible initiation of SSRI if ineffective (2) Obesity (BMI 30.0-34.9): * Diet and exercise to be encouraged upon discharge. A1c 5.2. Cholesterol elevated at 222, LDL 106, HDL 100 -- follow up with PCP outpatient * diet (3) Hyperlipidemia: * Hx of. Not on any medications. * Lipid panel -- triglycerdies 80, cholesterol 222, LDL 106, HDL 100 * May benefit from low dose statin as above -- rec follow up outpatient (4) Hypertension: * Chronic. Elevated slightly at 146/86 in setting of anxiety * Continued home amlodipine 5 mg daily (5) Abdominal distension: * Resolved * KUB without evidence of obstruction, mod fecal load * Miralax added with resulting moderate BM 3/10 (6) Hypomagnesemia: * Mag 1.5 upon arrival, replaced via IV supplementation in the ER * Mag 1.9 on repeat, wnl (7) Elevated alkaline phosphatase level: * Hx heavy alcohol usage >1 year ago. States she typically consumes 2-3 mixed drinks up to twice weekly on an average basis * liver US here with fatty liver likely cause of persistent elevation of alk phos * No s/sx withdraw currently * Alk phos elevated to 205 on admission, trending down * Repeat labs in 1 week as outpatient (8) Elevated bilirubin: * Tbili 1.1 on admission, max 1.6 * Tbili 1.4 with direct bili 0.4, elevated AST to ALT ration 2:1, could be consistent with EtOH hepatitis * US Liver with 3mm GB polyp, nonspecific hepatic steatosis (possibly 2nd hx etoh use) * HIDA negative * Instructed to avoid all alcohol and tylenol -- repeat labs in 1 week to ensure resolution -- follow up with PCP (9) DVT prophylaxis: * SCDs, Damon weaver while inpatient * Encouraged ambulation (10) Thrombocytopenia: * Secondary to etoh use -- instructed to abstain from etoh and given slip for repeat CBC and LFT in 1 week * Also instructed to avoid tylenol given elevation in LFTs as above Total Time Total Time Spent Total Time Spent (In Minutes): 60 Discharge Plan Discharge Items Patient Disposition: Home - Self-Care Reason For Visit: CHEST PAIN Discharge Diagnosis: Atypical Chest Pain, Elevated Liver Enzymes Condition on Discharge: Good Goals: You have been hospitalized for an acute medical problem. During your stay at [facility], we have made an effort to correct the problem that brought you to the hospital while keeping you as comfortable as possible. Medications were used to bring your condition under control and your discharge instructions will include directions for any medications you should take after leaving the hospital. Please make sure you see your Primary Care Provider as part of your follow up plan. Activity: Resume your previous activity Non-emergency contact: Primary Care Provider Call non-emergency contact if: you have any medication questions, your symptoms worsen and your pain is not controlled Follow-up/Referrals: Bella Hood PA-C [Primary Care Provider] - (Please call your PCP to schedule a follow-up discharge appointment.) Diet: Heart Healthy and Low Fat Diet Comment: low fat for next 2 weeks Ambulatory Orders: Complete Blood Count no Diff (Timed) Timeframe: 1 Week Location: Determined by Patient Ordered By: Tara Laura Hepatic Function (Liver) Panel (Routine) Timeframe: 1 Week Location: Determined by Patient Ordered By: Tara Laura Addtl Attending Provider Instructions: You have been hospitalized for chest pain/palpitations. As discussed, these may have been attributed to some anxiety regarding returning to work after your recent surgery. You had trialed Vistaril (hydroxyzine) while inpatient to assist with anxiety and may be taken on an as needed basis. A prescription has been sent to your pharmacy. You may want to discuss starting an antidepressant/antianxiety medication with your primary care provider if symptoms persist. Your bilirubin and liver function tests were found to be elevated and your platelets were low. You had imaging done to rule out gallbladder disease, but you had a fatty liver. It is recommended that you have repeat CBC (blood count and checks platelets) and LFT (liver function test) in one week. It is strongly recommended to avoid all alcohol and tylenol products during this time, as this can further damage your liver and lead to complications. Please follow up with your primary care provider in the next week. Your cholesterol was also found to be elevated. A healthy diet and exercise are encouraged, and you may want to discuss starting a statin (such as Lipitor or Crestor) with your primary care provider if these are still elevated on repeat labs, at the discretion of your provider. Please return to the emergency department if you have any chest pain, shortness of breath, or for any symptoms that are concerning for you. It has been a pleasure being a part of the medical team providing for you while you have been in the hospital. Take care! Pending Studies at Discharge: No Stand-Alone Forms: My Ronni Sanchez [facility], Work/School Release (Inpt) Medications and DC Order Prescriptions: New hydroxyzine HCl 25 mg Tablet 25 mg PO Q6H PRN (Reason: anxiety) Qty: 30 RF: 0 Continued amlodipine 5 mg Tablet 5 mg PO QAM RF: 0 cholecalciferol (vitamin D3) [Vitamin D3] 1,000 unit Tablet 1,000 unit PO QAM RF: 0 Discontinued acetaminophen [Tylenol Extra Strength] 500 mg Tablet 1,000 mg PO Q6H PRN (Reason: Pain) RF: 0 Discharge Orders: Discharge Order (Routine); Ordered 07/21/19 Ordered By: Juanis Bashir Admission Data Admit Date/Time: 07/19/19 14:32 Attending Provider: Juanis Bashir Admit Provider: Xochilt Chapin Primary Care Provider: Bella Hood Other Interventions: Discharge Summary Assessment (RN) Last Done: 07/21/19 14:49 DC Date/Time DO NOT enter until pt leaves facility: 07/21/19 15:41 Supervising Physician Co-Signing Physician Notes PA Supervision Note: I personally saw and examined the patient. I verified all cook points and agree with JEFFREY Laura with the following exceptions and/or additions: Pt much improved, no further chest pains. No nausea or vomiting, no abd pains. Is tolerating a diet. Is stable for discharge to home with plan outlined as above VSS NAD, AAOx3, mood normal Anicteric sclerae, EOMI RRR no mgr Breast- wounds underneath breasts healing nicely, no erythema or drainage CTAB no wcr Abd +BS soft NT ND, no HSM Ext: no edema or calf tenderness Atypical chest pain, now resolved, extensive workup as above for chest pain as well as elevated LFTs as above All improving -close f/u needed Coding Level of Care Code 90495 OBS Care - Discharge Diagnoses Chest pain R07.9 Obesity (BMI 30.0-34.9) E66.9 Hyperlipidemia E78.5 Hypertension I10 Abdominal distension R14.0 Hypomagnesemia E83.42 Elevated alkaline phosphatase level R74.8 Elevated bilirubin R17 DVT prophylaxis Z29.9 Thrombocytopenia D69.6
== END 2019-07-21 15:41 | disposition home or self-care (01) ==
LOC: 2W 12:05 → ED 12:05 → SUATTDRO 14:32 → 2W 16:30